=== PATIENT | female | born 1985 | race African-American/Black ===

== ENCOUNTER 2020-06-09 20:12 | Emergency (ER) | payer OTHER ==
[~2020-06-09 20:12] MED LIST: ANTIVERT25 MG PO
[2020-06-09 21:37] LABS: BASOPHIL 0.6 % (0-2); EOSINOPHIL 4.1 % (0-5); HCT 39.7 % (37.0-47.0); HGB 13.3 g/dl (12.5-16.0); LYMPHOCYTE 31.8 % (15-48); MCH 30.6 pg (25.0-31.0); MCHC 33.5 g/dL (32.0-36.0); MCV 91.3 fL (78.0-100.0); MONOCYTE 5.5 % (0-12); MPV 11.5 fL (6.0-9.5); NEUTROPHIL 57.7 % (41-80); NRBC 0; PLT 193 K/uL (150-400); RBC 4.35 M/uL (4.20-5.40); RDW 12.1 % (11.5-14.0); WBC 7.1 K/uL (4.0-10.5)
[2020-06-09 21:56] LABS: BUN/CREAT RATIO (CALC) 17.2 RATIO; CREATININE 0.64 mg/dL (0.51-0.95)
== END 2020-06-09 22:40 | disposition home or self-care (01) ==
LOC: FER 20:12
PROVIDERS: Nurse Practitioner Family
DX: F41.1 Generalized anxiety disorder (principal); Z88.5 Allergy status to narcotic agent
CPT/HCPCS: 36415; 80048; 84484; 85025; 93005

== ENCOUNTER 2020-11-30 18:11 | Emergency (ER) | payer OTHER | END 2020-11-30 19:37 | disposition left against medical advice (07) | LOC: FER 18:11 | DX: R05 Cough (principal); R11.0 Nausea; R19.7 Diarrhea, unspecified; Z53.8 Procedure and treatment not carried out for other reasons ==

== ENCOUNTER 2021-02-28 19:45 | Emergency (ER) | payer OTHER ==
[2021-02-28 20:50] LABS: BASOPHIL 0.7 % (0-2); EOSINOPHIL 6.3 % (0-5); HCT 38.9 % (37.0-47.0); HGB 12.6 g/dl (12.5-16.0); LYMPHOCYTE 36.7 % (15-48); MCH 30.2 pg (25.0-31.0); MCHC 32.4 g/dL (32.0-36.0); MCV 93.3 fL (78.0-100.0); MONOCYTE 6.1 % (0-12); NRBC 0; PLT 194 K/uL (150-400); RBC 4.17 M/uL (4.20-5.40); RDW 12.5 % (11.5-14.0); WBC 6.1 K/uL (4.0-10.5)
[2021-02-28 20:56] LABS: ALBUMIN 3.7 g/dL (3.4-5.0); BILIRUBIN - TOTAL 0.2 mg/dL (0.2-1.0); BUN/CREAT RATIO (CALC) 24.6 RATIO; CREATININE 0.69 mg/dL (0.51-0.95); GLOBULIN (CALCULATION) 3.2 g/dL; POTASSIUM 3.6 mmol/L (3.5-5.1); TOTAL PROTEIN 6.9 g/dL (6.4-8.2)
== END 2021-03-01 04:00 | disposition left against medical advice (07) ==
LOC: FER 19:45
PROVIDERS: Emergency Medicine
DX: R07.89 Other chest pain (principal); F17.200 Nicotine dependence, unspecified, uncomplicated; Z86.16 Personal history of COVID-19; Z53.8 Procedure and treatment not carried out for other reasons; Z88.5 Allergy status to narcotic agent
CPT/HCPCS: 36415; 71045; 80053; 84484; 85025; 85379

== ENCOUNTER 2021-09-01 11:45 | Emergency (ER) | payer OTHER ==
[2021-09-01] MEDS ORDERED: NAPROXEN500 MG PO (14:25)
== END 2021-09-01 14:32 | disposition home or self-care (01) ==
LOC: FER 11:45
DX: S16.1XXA Strain of muscle, fascia and tendon at neck level, initial encounter (principal); S40.011A Contusion of right shoulder, initial encounter; G44.209 Tension-type headache, unspecified, not intractable; W51.XXXA Accidental striking against or bumped into by another person, initial encounter; Y92.009 Unspecified place in unspecified non-institutional (private) residence as the place of occurrence of the external cause
CPT/HCPCS: 72040; 73000